=== PATIENT | female | born 1990 | race Caucasian/White ===

== ENCOUNTER 2016-12-14 16:06 | Emergency (ER) ==
[2016-12-14 16:26] VITALS: BP 130/81; TEMP 98.3; BMI 35.6
== END 2016-12-14 17:45 | disposition left against medical advice (07) ==
LOC: ED 16:06
DX: R42 Dizziness and giddiness (principal)

== ENCOUNTER 2017-03-18 17:11 | Emergency (ER) ==
[2017-03-18 17:29] VITALS: BP 134/97; TEMP 99.2; BMI 32.1
[2017-03-18 17:48] LABS: URINE PREGNANCY INTERNAL QC INTERNAL QC VALID
--- NOTE | 2017-03-18 18:23 | DI ---
EXAM: RIGHT ANKLE THREE VIEWS HISTORY: Injury, pain . FINDINGS: Bone and joint structures appear normal. No fracture or joint dislocation. There is no joint effusion. Bone density is unremarkable. IMPRESSION: Bone and joint structures are within normal limits.
--- NOTE | 2017-03-18 18:23 | DI ---
EXAM: RIGHT FOOT, 3 VIEWS HISTORY: Injury, pain FINDINGS: Bone and joint structures appear normal. No displaced fracture or joint dislocation is seen. There is no joint effusion. Soft tissues within normal limits. IMPRESSION: Within normal limits.
--- NOTE | 2017-03-18 18:31 | ED.PDOC ---
General ED Provider: Dr. EARLENE MORTON Chief Complaint: Ankle Pain/Injury Stated Complaint: right ankle foot pain Time Seen by Physician: 17:17 (seen with nurses at bedside ) Mode of Arrival: Walk-In Information Source: Patient Exam Limitations: No limitations Primary Care Provider: [facility] Nursing and Triage Documentation Reviewed and Agree: Yes Musculoskeletal Complaint Exam - Ankle/Foot Complaint/Exam Location of Injury: Reports: Right, Ankle, Foot Mechanism of Injury: Reports: Trauma (rolled ankle) Onset/Duration: 1 hr Symptoms Are: Reports: Still present Onset of Pain: Reports: Immediate Initial Severity: Moderate Current Severity: Mild Location: Reports: Discrete Character: Reports: Aching Alleviating: Reports: Rest, Position Aggravating: Reports: Movement Able to Bear Weight: Yes Associated Signs and Symptoms: Denies: Swelling, Redness, Bruising, Fever, Weakness, Numbness, Tingling Gout Risk Factors: Reports: None Related Surgical History: Reports: None Achilles Tendon Abnormality: No Differential Diagnosis: Closed Fracture Review of Systems - Review Of Systems Constitutional: Reports: No symptoms Eyes: Reports: No symptoms Ears, Nose, Mouth, Throat: Reports: No symptoms Respiratory: Reports: No symptoms Cardiac: Reports: No symptoms GI: Reports: No symptoms : Reports: No symptoms Musculoskeletal: Reports: Joint pain Skin: Reports: No symptoms Neurological: Reports: No symptoms Endocrine: Reports: No symptoms Hematologic/Lymphatic: Reports: No symptoms All Other Systems: Reviewed and Negative Past Medical History - Past Medical History Endocrine: Reports: None Cardiovascular: Reports: None Respiratory: Reports: None Hematological: Reports: None Gastrointestinal: Reports: None Genitourinary: Reports: None Neuro/Psych: Reports: Anxiety, Depression Musculoskeletal: Reports: None Cancer: Reports: None Last Menstrual Period: -02/27/17 Other Pertinent Past Medical History: PLASTIC SURGERY- RECONSTRUCTION ON FACE, LEFT EYE SURGERY - Surgical History General Surgical History: Reports: Other (PLASTIC SURGERY- RECONSTRUCTION ON FACE, LEFT EYE SURGERY) - Family History Family History: Reports: Unknown - Social History Smoking Status: Current some day smoker, Light tobacco smoker Hx Substance Use: No Alcohol Screening: Occasionally - Immunizations Tetanus Shot up to Date: No (10 years ago) Physical Exam - Physical Exam Appearance: Well-appearing, No pain distress, Well-nourished Eyes: GIRISH, EOMI, Conjunctiva clear ENT: Ears normal, Nose normal, Oropharynx normal Respiratory: Airway patent, Breath sounds clear, Breath sounds equal, Respirations nonlabored Cardiovascular: RRR, Pulses normal, No rub, No murmur GI/: Soft, Nontender, No masses, Bowel sounds normal, No Organomegaly Musculoskeletal: Normal strength, ROM intact, No edema, No calf tenderness Skin: Warm, Dry, Normal color Neurological: Sensation intact, Motor intact, Reflexes intact, Cranial nerves intact, Alert, Oriented Psychiatric: Affect appropriate, Mood appropriate Interpretation - Radiology Interpretation Radiology Interpretation By: Radiologist Radiology Results: No acute changes Critical Care Note - Critical Care Note Total Time (mins): 0 Course - Course Orders, Labs, Meds: Lab Review 03/18/17 17:33 Urine Test Negative Orders Category Date Time Status URINE DRUG SCREEN (RAPID FOR ED) [DRUG SCREEN, URINE, LAB 03/18/17 17:33 Received RAPID] Stat URINE Stat LAB 03/18/17 17:33 Completed ANKLE, RIGHT MIN 3 VIEWS Stat RADS 03/18/17 17:31 Completed FOOT, RIGHT 3 VIEWS Stat RADS 03/18/17 17:32 Completed Vital Signs: Temp Pulse Resp BP Pulse Ox 03/18/17 17:11 99.2 F 105 H 20 134/97 H 97 Departure - Departure Time of Disposition: 18:31 Disposition: HOME SELF-CARE Discharge Problem: Ankle pain Instructions: Arthralgia (ED), Sprain (ED) Condition: Good Pt referred to PMD for follow-up: No Additional Instructions: Please call your Family Physician as soon as possible to schedule a follow-up appointment. Allergies/Adverse Reactions: Allergies amoxicillin [Amoxicillin] Adverse Reaction (Verified 03/18/17 17:31) Penicillins Adverse Reaction (Verified 03/18/17 17:31) Home Medications: Ambulatory Orders 1 [No Reported Medications] 03/18/17 Disposition Discussed With: Patient, Family
[2017-03-18 18:38] LABS: COCAIN SCREEN,URINE NEGATIVE (NEGATIVE)
== END 2017-03-18 18:47 | disposition home or self-care (01) ==
LOC: ED 17:11
DX: M25.571 Pain in right ankle and joints of right foot (principal); X50.1XXA Overexertion from prolonged static or awkward postures, initial encounter
CPT/HCPCS: 80306; 81025; 99283

== ENCOUNTER 2017-11-04 10:22 | Emergency (ER) | payer OTHER ==
[2017-11-04 10:27] VITALS: BP 135/79; TEMP 98.9; BMI 41.5
--- NOTE | 2017-11-04 11:22 | ED.PDOC ---
General ED Provider: Dr. ALABNIA MCKINNON Chief Complaint: Respiratory Complaint Stated Complaint: Generalized aching, fever, chills sore throat and Rt Ear Ache. Has been exposed to flu. Denies nausea or vomiting. Time Seen by Physician: 11:10 Mode of Arrival: Walk-In Information Source: Patient Primary Care Provider[facility] Nursing and Triage Documentation Reviewed and Agree: Yes Reviewed sepsis parameters & appropriate labs ordered?: Yes System Inflammatory Response Syndrome: Not Applicable Sepsis Protocol: For patient's 13 years and over: Temp is 96.8 and below OR 101 and greater Pulse >90 BPM Resp >20/minute Acutely Altered Mental Status Are patient's symptoms suggestive of a new infection, such as: -Pneumonia -Skin, Soft Tissue -Endocarditis -UTI -Bone, Joint Infection -Implantable Device -Acute Abdominal Infection -Wound Infection -Meningitis -Blood Stream Catheter Infection -Unknown System Inflammatory Response Syndrome: Not Applicable Respiratory Complaint Exam - Respiratory Complaint/Exam Symptoms Are: Still present Timing: Constant Initial Severity: Moderate Current Severity: Mild Location: Throat, Chest Character: Reports: Non-productive cough, Dry cough Aggravating: Reports: None Alleviating: Reports: None Associated Signs and Symptoms: Reports: Nasal congestion, Sore throat (Ear ache- RT) History of Healthcare-Acquired Pneumonia: No Related Surgical History: Reports: None Pulmonary Embolism Risk Factors: None Cardiac Risk Factors: Reports: None Pseudomonas Risk Factors: Reports: None Tuberculosis Risk Factors: Reports: None Status Asthmaticus Risk Factors: Reports: None Home Oxygen Use: No Current Antibiotic Use: No Current Asthma Medication Use: No Respiratory Distress: None Inadequate Respiratory Effort: No Dysphagia Present: No Stridor Present: No JVD Present: No Accessory Muscle Use: No Retractions: Not Present Diminished Breath Sounds: No Sinus Tenderness: None Grunting Respirations: No Kussmaul Respirations: No Differential Diagnoses: Influenza Review of Systems - Review Of Systems Constitutional: Reports: Other Eyes: Reports: No symptoms Ears, Nose, Mouth, Throat: Reports: Ear pain, Throat pain Respiratory: Reports: Cough Cardiac: Reports: No symptoms GI: Reports: No symptoms : Reports: No symptoms Musculoskeletal: Reports: No symptoms Skin: Reports: No symptoms Neurological: Reports: No symptoms Endocrine: Reports: No symptoms Hematologic/Lymphatic: Reports: No symptoms All Other Systems: Reviewed and Negative Past Medical History - Past Medical History Endocrine: Reports: None Cardiovascular: Reports: None Respiratory: Reports: None Hematological: Reports: None Gastrointestinal: Reports: None Genitourinary: Reports: None Neuro/Psych: Reports: Anxiety, Depression Musculoskeletal: Reports: None Cancer: Reports: None Last Menstrual Period: oct 12- Other Pertinent Past Medical History: PLASTIC SURGERY- RECONSTRUCTION ON FACE, LEFT EYE SURGERY - Surgical History General Surgical History: Reports: Other (PLASTIC SURGERY- RECONSTRUCTION ON FACE, LEFT EYE SURGERY) - Family History Family History: Reports: Unknown - Social History Smoking Status: Former smoker Hx Substance Use: No Alcohol Screening: None Physical Exam - Physical Exam Appearance: Obese Ill-appearing: Mild Pain Distress: None Eyes: GIRISH, EOMI, Conjunctiva clear ENT: Ears normal, Nose normal, Erythema (Rt TM which is full and pos erythrema) Respiratory: Airway patent, Breath sounds clear, Breath sounds equal Cardiovascular: RRR, Pulses normal, No rub, No murmur GI/: Soft, Nontender, No masses, Bowel sounds normal Musculoskeletal: Normal strength, ROM intact, No edema Skin: Warm, Dry Neurological: Sensation intact, Motor intact, Cranial nerves intact, Alert, Oriented Psychiatric: Affect appropriate Critical Care Note - Critical Care Note Total Time (mins): 0 Course - Course Orders, Labs, Meds: Lab Review 11/04/17 10:40 Influenza A (Rapid) Negative by naat Influenza B (Rapid) Positive by naat H Orders Category Date Time Status FLU A/B MOLECULAR Stat LAB 11/04/17 10:40 Completed RAPID STREP SCREEN [MOLECULAR GROUP A STREP] Stat LAB 11/04/17 10:40 Completed Vital Signs: Temp Pulse Resp BP Pulse Ox 11/04/17 10:22 98.9 F 94 H 20 135/79 98 Departure - Departure Time of Disposition: 11:25 Disposition: HOME SELF-CARE Discharge Problem: Influenza due to influenza virus, type B, Otitis Instructions: Influenza (ED), Serous Otitis Media (ED) Condition: Good Pt referred to PMD for follow-up: Yes (1 week) IPMP verified?: No Additional Instructions: Take all meds as directed Tylenol or Ibuprofen for temp elevation >101 deg F or pain May take cough and cough meds as needed Out of school through next week. When Wear facial Mask to reduce spread of Respiratory illness and flu/ Avoid public locations until free of symptoms Follow up PCP in next week Allergies/Adverse Reactions: Allergies amoxicillin [Amoxicillin] Adverse Reaction (Verified 11/04/17 10:28) Penicillins Adverse Reaction (Verified 11/04/17 10:28) Home Medications: Ambulatory Orders Azithromycin [Zithromax] 250 mg PO DAILY #6 tablet 11/04/17 Disposition Discussed With: Patient
== END 2017-11-04 11:45 | disposition home or self-care (01) ==
LOC: ED 10:22
DX: J10.1 Influenza due to other identified influenza virus with other respiratory manifestations (principal); H66.91 Otitis media, unspecified, right ear
CPT/HCPCS: 87502; 87651; 99283

== ENCOUNTER 2018-02-27 15:14 | Emergency (ER) ==
[2018-02-27 15:21] VITALS: BP 131/88; TEMP 98.4; BMI 36.7
[2018-02-27] MEDS ORDERED: MORPHINE 2 MG/ML SYRINGE ONE (15:49)
[2018-02-27] MEDS: MORPHINE 2 MG/ML SYRINGE IVP PRN (15:51)
[2018-02-27] MEDS: ZOFRAN 4 MG/2 ML IVP STA (15:51)
--- NOTE | 2018-02-27 17:17 | CT ---
EXAM: CT abdomen pelvis with and without contrast HISTORY: Left upper quadrant abdominal pain COMPARISON: CT abdomen pelvis 11/26/2013 TECHNIQUE: Serial axial images of the abdomen pelvis were performed before and after 75 mL is of Omn ipaque IV contrast was administered. These were obtained from the lung bases through the inferior pe lvis. FINDINGS: The lung bases demonstrate mild atelectasis. The liver is unremarkable with no focal hepatic lesion. The gallbladder is mildly contracted. The a drenal glands are unremarkable. The kidneys are normal. Spleen is unremarkable. Pancreas is unrema rkable. Stomach is normal. Small bowel in the abdomen pelvis is unremarkable. The colon is nondistended. There is no evidence of appendicitis. Uterus is unremarkable. The ovaries are unremarkable. Urinary bladder is distende d. There is minimal free fluid in the pelvis. The osseous structures demonstrate sclerosis in the b ilateral sacroiliac joints. IMPRESSION: 1. No acute intra-abdominal or pelvic process to account for patient's symptoms. 2. Mild nonspecific free fluid noted in the pelvis. 3. 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
--- NOTE | 2018-02-27 17:30 | ED.PDOC ---
General ED Provider: Dr. ALBANIA DENSON-ER Chief Complaint: Abdominal Pain Stated Complaint: cesia been hurting since this am Time Seen by Physician: 15:20 Mode of Arrival: Walk-In Information Source: Patient Exam Limitations: No limitations [facility] Nursing and Triage Documentation Reviewed and Agree: Yes Reviewed sepsis parameters & appropriate labs ordered?: Yes System Inflammatory Response Syndrome: Not Applicable Sepsis Protocol: For patient's 13 years and over: Temp is 96.8 and below OR 101 and greater Pulse >90 BPM Resp >20/minute Acutely Altered Mental Status Are patient's symptoms suggestive of a new infection, such as: -Pneumonia -Skin, Soft Tissue -Endocarditis -UTI -Bone, Joint Infection -Implantable Device -Acute Abdominal Infection -Wound Infection -Meningitis -Blood Stream Catheter Infection -Unknown GI Complaint Exam - Abdominal Pain Complaint/Exam Onset: Sudden Duration: several hours Symptoms Are: Still present Timing: Constant Initial Severity: Mild Current Severity: Moderate Location of Pain: LUQ Character: Reports: Dull, Aching, Cramping Alleviating: Reports: Spontaneous resolution Associated Signs and Symptoms: Denies: Diaphoresis, Fever, Cough, Chest pain, Dizziness, Back pain, Constipation, Blood in stool, Dysuria, Urinary frequency, Decreased urine output, Decreased appetite, Vaginal bleeding, Vaginal discharge , Nausea, Vomiting, Diarrhea, Sore throat, Decreased activity Quality Indicator For Non-Traumatic Chest Pain/Syncope: EKG Performed Review of Systems - Review Of Systems Constitutional: Reports: No symptoms Eyes: Reports: No symptoms Ears, Nose, Mouth, Throat: Reports: No symptoms Respiratory: Reports: No symptoms Cardiac: Reports: No symptoms GI: Reports: Abdominal pain, Nausea : Reports: No symptoms Musculoskeletal: Reports: No symptoms Skin: Reports: No symptoms Neurological: Reports: No symptoms Endocrine: Reports: No symptoms Hematologic/Lymphatic: Reports: No symptoms All Other Systems: Reviewed and Negative Past Medical History - Past Medical History Previously Healthy: Yes Endocrine: Reports: None Cardiovascular: Reports: None Respiratory: Reports: None Hematological: Reports: None Gastrointestinal: Reports: None Genitourinary: Reports: None Neuro/Psych: Reports: Anxiety, Depression Musculoskeletal: Reports: None Cancer: Reports: None Last Menstrual Period: 2 WEEKS Other Pertinent Past Medical History: PLASTIC SURGERY- RECONSTRUCTION ON FACE, LEFT EYE SURGERY - Surgical History General Surgical History: Reports: Other (PLASTIC SURGERY- RECONSTRUCTION ON FACE, LEFT EYE SURGERY) - Family History Family History: Reports: Unknown - Social History Smoking Status: Current some day smoker Hx Substance Use: No Alcohol Screening: Occasionally Lives: With family - Immunizations Tetanus Shot up to Date: No Physical Exam - Physical Exam Appearance: Well-appearing, No pain distress, Well-nourished Pain Distress: Moderate Eyes: GIRISH, EOMI, Conjunctiva clear ENT: Ears normal, Nose normal, Oropharynx normal Neck: Supple Respiratory: Airway patent, Breath sounds clear, Breath sounds equal, Respirations nonlabored Cardiovascular: RRR, Pulses normal, No rub, No murmur GI/: Soft, No masses, Tender Musculoskeletal: Normal strength Skin: Warm, Dry, Normal color Neurological: Sensation intact Psychiatric: Affect appropriate Interpretation - Radiology Interpretation Radiology Interpretation By: Radiologist Radiology Results: Negative Exam Interpreted: CT Scan - EKG Interpretation Time of EKG #1: 17:30 Re-Evaluation - Re-Evaluation Time of Re-Evaluation: 17:30 Status: Improved Vital Signs Stable: Yes Pain Level: 0 Appearance: NAD Lungs: Clear Skin: Warm and Dry Neuro: Alert and Oriented X3 CV: RRR Critical Care Note - Critical Care Note Total Time (mins): 0 Course - Course Hematology/Chemistry: 02/27/18 15:35 02/27/18 15:35 Orders, Labs, Meds: Lab Review 02/27/18 02/27/18 02/27/18 15:35 15:35 15:35 WBC 9.91 RBC 4.96 Hgb 14.3 Hct 40.9 MCV 82.5 MCH 28.8 MCHC 35.0 RDW Coeff of Frank 13.2 Plt Count 326 Immature Gran % (Auto) 0.3 Neut % (Auto) 55.3 Lymph % (Auto) 32.2 [place] % (Auto) 7.7 Eos % (Auto) 3.7 Baso % (Auto) 0.8 Immature Gran # (Auto) 0.0 Neut # (Auto) 5.5 Lymph # (Auto) 3.2 [place] # (Auto) 0.8 Eos # (Auto) 0.4 Baso # (Auto) 0.1 ESR 6 Sodium 136 Potassium 3.5 Chloride 109 H Carbon Dioxide 17 L Anion Gap 13.5 BUN 6 L Creatinine 0.73 Estimated GFR (MDRD) 97.00 BUN/Creatinine Ratio 8.21 Glucose 104 Calcium 9.6 Total Bilirubin 0.7 AST 17 ALT 18 Alkaline Phosphatase 72 Total Protein 7.4 Albumin 4.0 Globulin 3.4 Albumin/Globulin Ratio 1.18 Amylase 31 Lipase 14 Serum , Qual Negative Urine Color Urine Clarity Urine pH Ur Specific [place] Urine Protein Urine Glucose (UA) Urine Ketones Urine Blood Urine Nitrite Urine Bilirubin Urine Urobilinogen Ur Leukocyte Esterase Urine Microscopic RBC Urine Microscopic WBC Ur Squamous Epith Cells 02/27/18 15:35 WBC RBC Hgb Hct MCV MCH MCHC RDW Coeff of Frank Plt Count Immature Gran % (Auto) Neut % (Auto) Lymph % (Auto) [place] % (Auto) Eos % (Auto) Baso % (Auto) Immature Gran # (Auto) Neut # (Auto) Lymph # (Auto) [place] # (Auto) Eos # (Auto) Baso # (Auto) ESR Sodium Potassium Chloride Carbon Dioxide Anion Gap BUN Creatinine Estimated GFR (MDRD) BUN/Creatinine Ratio Glucose Calcium Total Bilirubin AST ALT Alkaline Phosphatase Total Protein Albumin Globulin Albumin/Globulin Ratio Amylase Lipase Serum , Qual Urine Color Yellow Urine Clarity Cloudy Urine pH 6.0 Ur Specific [place] 1.015 Urine Protein Negative Urine Glucose (UA) Negative Urine Ketones Negative Urine Blood Trace-intact Urine Nitrite Negative Urine Bilirubin Negative Urine Urobilinogen 0.2 Ur Leukocyte Esterase 2+ Urine Microscopic RBC 2-5 Urine Microscopic WBC 5-10 Ur Squamous Epith Cells 50-100 Orders Category Date Time Status NPO REMINDER: IMAGING ONCE CARE 02/27/18 15:37 Active ED IV/MEDIPORT/POWERPORT .ONCE EMERGENCY 02/27/18 15:36 Active AMYLASE Stat LAB 02/27/18 15:35 Completed CBC W/ AUTO DIFF Stat LAB 02/27/18 15:35 Completed COMPREHENSIVE METABOLIC PANEL Stat LAB 02/27/18 15:35 Completed ESR Stat LAB 02/27/18 15:35 Completed LIPASE Stat LAB 02/27/18 15:35 Completed SERUM Stat LAB 02/27/18 15:35 Completed URINALYSIS C & S IF INDICATED Stat LAB 02/27/18 15:35 Completed URINE CULTURE Routine LAB 02/27/18 15:35 Received 0.9 % Sodium Chloride [Saline Flush] MEDS 02/27/18 15:36 Ordered 1 syr IVF PRN PRN Morphine Sulfate [Morphine 2 mg/ml Syringe] MEDS 02/27/18 15:36 Ordered 2 mg IVP Q4H PRN Ondansetron HCl/Pf [Zofran 4 mg/2 ml] MEDS 02/27/18 15:36 Discontinued 4 mg IVP ONCE STA CT ABDOMEN/PELVIS W/WO CONTRAS Stat RADS 02/27/18 15:37 Completed Medications Generic Name Dose Route Start Last Admin Trade Name Freq PRN Reason Stop Dose Admin Morphine Sulfate 2 mg 02/27/18 15:36 02/27/18 15:51 Morphine 2 Mg/Ml Syringe IVP 2 mg Q4H PRN Administration Abdominal Pain Sodium Chloride 1 syr 02/27/18 15:36 Saline Flush IVF PRN PRN To flush IV Discontinued Medications Generic Name Dose Route Start Last Admin Trade Name Freq PRN Reason Stop Dose Admin Ondansetron HCl 4 mg 02/27/18 15:36 02/27/18 15:51 Zofran 4 Mg/2 Ml IVP 02/27/18 15:37 4 mg ONCE STA Administration Vital Signs: Temp Pulse Resp BP Pulse Ox 02/27/18 15:14 98.4 F 96 H 22 131/88 97 Departure - Departure Time of Disposition: 17:30 Disposition: HOME SELF-CARE Discharge Problem: Abdominal pain Instructions: Acute Abdominal Pain (ED) Condition: Good Pt referred to PMD for follow-up: No IPMP verified?: Yes Additional Instructions: librax q 6hrs prn #15--zantac 150mg #30--cipro 500mg bid x 7 days---f/u with pcp for more xrays and possibly referral to gi Allergies/Adverse Reactions: Allergies amoxicillin [Amoxicillin] Adverse Reaction (Verified 11/04/17 10:28) NSAIDS (Non-Steroidal Anti-Inflamma Adverse Reaction (Verified 02/27/18 15:23) Penicillins Adverse Reaction (Verified 11/04/17 10:28) Home Medications: Ambulatory Orders 1 [No Reported Medications] 02/27/18 Disposition Discussed With: Patient
== END 2018-02-27 17:38 | disposition home or self-care (01) ==
LOC: ED 15:14
DX: R10.12 Left upper quadrant pain (principal); F17.210 Nicotine dependence, cigarettes, uncomplicated
CPT/HCPCS: 36415; 80053; 81001; 82150; 83690; 84703; 85025; 85651; 87086; 96374; 96375; 99283; 99284

== ENCOUNTER 2018-04-09 23:24 | Emergency (ER) ==
[2018-04-09 23:34] VITALS: BP 146/102; TEMP 98; BMI 32.0
[2018-04-09] MEDS ORDERED: BOOSTRIX IM ONE (23:47)
--- NOTE | 2018-04-09 23:47 | ED.PDOC ---
General ED Provider: Dr. 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 states she did not see any blood on the finger that was stuck . She cleaned it out well and used rubbing Alcohol. Time Seen by Physician: 23:35 Mode of Arrival: Walk-In Information Source: Patient Exam Limitations: No limitations Primary Care Provider: [facility] Nursing and Triage Documentation Reviewed and Agree: Yes Does patient meet sepsis criteria?: No If yes, has appropriate treatment been initiated?: No System Inflammatory Response Syndrome: Not Applicable Sepsis Protocol: For patient's 13 years and over: Temp is 96.8 and below OR 101 and greater Pulse >90 BPM Resp >20/minute Acutely Altered Mental Status Are patient's symptoms suggestive of a new infection, such as: -Pneumonia -Skin, Soft Tissue -Endocarditis -UTI -Bone, Joint Infection -Implantable Device -Acute Abdominal Infection -Wound Infection -Meningitis -Blood Stream Catheter Infection -Unknown Environmental Complaint Exam - Environmental Exposure Complaint/Exam Patient Complains of: Denies: Cold exposure (Dirty needle ), Heat Exposure Exposure Began: just prior to arrival Location: Present: Other (left index finger ) Aggravating Cold: Reports: None Aggravating Heat: Reports: None Associated Signs and Symptoms: Denies: Nausea, Vomiting, Numbness, Thirst, Diaphoresis, Weakness, Pallor, Shivering, Altered mental status, Leg cramps, Abdominal cramps Differential Diagnoses: Other (occupational needle stick ) Review of Systems - Review Of Systems Constitutional: Reports: No symptoms Eyes: Reports: No symptoms Ears, Nose, Mouth, Throat: Reports: No symptoms Respiratory: Reports: No symptoms Cardiac: Reports: No symptoms GI: Reports: No symptoms : Reports: No symptoms Musculoskeletal: Reports: No symptoms Skin: Reports: No symptoms Neurological: Reports: Anxiety Endocrine: Reports: No symptoms Hematologic/Lymphatic: Reports: No symptoms All Other Systems: Reviewed and Negative Past Medical History - Past Medical History Previously Healthy: Yes Endocrine: Reports: None Cardiovascular: Reports: None Respiratory: Reports: None Hematological: Reports: None Gastrointestinal: Reports: None Genitourinary: Reports: None Neuro/Psych: Reports: Anxiety, Depression Musculoskeletal: Reports: None Cancer: Reports: None Last Menstrual Period: 2 weeks Other Pertinent Past Medical History: PLASTIC SURGERY- RECONSTRUCTION ON FACE, LEFT EYE SURGERY - Surgical History General Surgical History: Reports: Other (PLASTIC SURGERY- RECONSTRUCTION ON FACE, LEFT EYE SURGERY) - Family History Family History: Reports: Unknown - Social History Smoking Status: Former smoker Hx Substance Use: No Alcohol Screening: Occasionally - Immunizations Tetanus Shot up to Date: No Physical Exam - Physical Exam Appearance: Well-appearing, No pain distress, Well-nourished Eyes: GIRISH, EOMI, Conjunctiva clear ENT: Ears normal, Nose normal, Oropharynx normal Respiratory: Airway patent, Breath sounds clear, Breath sounds equal, Respirations nonlabored Cardiovascular: RRR, Pulses normal, No rub, No murmur GI/: Soft, Nontender, No masses, Bowel sounds normal, No Organomegaly Musculoskeletal: Normal strength, ROM intact, No edema, No calf tenderness Skin: Warm, Dry, Normal color Neurological: Sensation intact, Motor intact, Reflexes intact, Cranial nerves intact, Alert, Oriented Psychiatric: Affect appropriate, Anxious Critical Care Note - Critical Care Note Total Time (mins): 0 Comments: Discussed risks and benefits of post exposure prophylaxis patient opted no to take medication due to her not seeing any blood during the needle stick. Course - Course Hematology/Chemistry: 04/09/18 23:50 04/09/18 23:50 Orders, Labs, Meds: Lab Review 04/09/18 04/09/18 23:50 23:50 WBC 12.46 H RBC 4.90 Hgb 13.9 Hct 41.1 MCV 83.9 MCH 28.4 MCHC 33.8 RDW Coeff of Frank 13.0 Plt Count 315 Immature Gran % (Auto) 0.2 Neut % (Auto) 59.8 Lymph % (Auto) 28.9 [place] % (Auto) 6.4 Eos % (Auto) 4.2 Baso % (Auto) 0.5 Immature Gran # (Auto) 0.0 Neut # (Auto) 7.5 H Lymph # (Auto) 3.6 H [place] # (Auto) 0.8 Eos # (Auto) 0.5 Baso # (Auto) 0.1 Sodium 139 Potassium 3.5 Chloride 108 H Carbon Dioxide 20 L Anion Gap 14.5 BUN 9 Creatinine 0.74 Estimated GFR (MDRD) 96.00 BUN/Creatinine Ratio 12.16 Glucose 99 Calcium 9.3 Total Bilirubin 0.6 AST 15 ALT 11 L Alkaline Phosphatase 73 Total Protein 8.0 Albumin 3.9 Globulin 4.1 Albumin/Globulin Ratio 0.95 Orders Category Date Time Status CBC W/ AUTO DIFF Stat LAB 04/09/18 23:50 Completed COMPREHENSIVE METABOLIC PANEL Stat LAB 04/09/18 23:50 Completed HEPATITIS PANEL, ACUTE Stat LAB 04/09/18 23:50 Received HIV 4TH GENERATION Stat LAB 04/09/18 23:50 Received Diphth,Pertuss(Acell),Tet Vac [Boostrix] MEDS 04/09/18 23:47 Discontinued 0.5 ml IM .ONCE ONE Medications Discontinued Medications Generic Name Dose Route Start Last Admin Trade Name Freq PRN Reason Stop Dose Admin Diphtheria/Pertussis/Tetanus Vacc 0.5 ml 04/09/18 23:47 04/09/18 23:56 Boostrix IM 04/09/18 23:48 0.5 ml .ONCE ONE Administration Vital Signs: Temp Pulse Resp BP Pulse Ox 04/09/18 23:24 98 F 80 15 146/102 H 99 Departure - Departure Time of Disposition: 23:52 Disposition: HOME SELF-CARE Discharge Problem: Needle stick injury Instructions: Needle Stick Injuries (ED) Condition: Stable Pt referred to PMD for follow-up: Yes IPMP verified?: No Additional Instructions: Follow up with your PCP in in 2-3 days. Allergies/Adverse Reactions: Allergies amoxicillin [Amoxicillin] Adverse Reaction (Verified 11/04/17 10:28) NSAIDS (Non-Steroidal Anti-Inflamma Adverse Reaction (Verified 02/27/18 15:23) Penicillins Adverse Reaction (Verified 11/04/17 10:28) Home Medications: Ambulatory Orders 1 [No Reported Medications] 02/27/18 Disposition Discussed With: Patient
== END 2018-04-10 00:09 | disposition home or self-care (01) ==
LOC: ED 23:24
DX: S61.231A Puncture wound without foreign body of left index finger without damage to nail, initial encounter (principal); W46.1XXA Contact with contaminated hypodermic needle, initial encounter; Y99.0 Civilian activity done for income or pay
CPT/HCPCS: 36415; 80053; 80074; 85025; 87389; 90471; 90715; 96372; 99282

== ENCOUNTER 2018-04-17 01:53 | Emergency (ER) ==
[2018-04-17 02:06] VITALS: BP 129/84; TEMP 97.9; BMI 36.3
[2018-04-17] MEDS ORDERED: PHENERGAN 25 MG/ML VIAL IM STA (02:08)
[2018-04-17] MEDS ORDERED: DEMEROL 100 MG/ML SYRINGE IM STA (02:09)
--- NOTE | 2018-04-17 02:16 | ED.PDOC ---
General ED Provider: Dr. SINDHU DOOLEY Chief Complaint: Abdominal Pain Stated Complaint: Patient states she has a bad gall bladder and has been trying have it taken out but the surgeons would not. She states that she started having sudden onset of pain tonight on the right upper quadrant radiating to the back. Had a turkey sandwich. States that she had some vomiting prior to arrival. Denies any urinary symtoms or vaginal bleeding. Time Seen by Physician: 02:12 Mode of Arrival: Walk-In Information Source: Patient Exam Limitations: No limitations Primary Care Provider: [facility] Nursing and Triage Documentation Reviewed and Agree: Yes Does patient meet sepsis criteria?: No System Inflammatory Response Syndrome: Not Applicable Sepsis Protocol: For patient's 13 years and over: Temp is 96.8 and below OR 101 and greater Pulse >90 BPM Resp >20/minute Acutely Altered Mental Status Are patient's symptoms suggestive of a new infection, such as: -Pneumonia -Skin, Soft Tissue -Endocarditis -UTI -Bone, Joint Infection -Implantable Device -Acute Abdominal Infection -Wound Infection -Meningitis -Blood Stream Catheter Infection -Unknown GI Complaint Exam - Abdominal Pain Complaint/Exam Onset: Sudden Duration: 2 hours Symptoms Are: Still present Timing: Constant Initial Severity: Moderate Current Severity: Severe Location of Pain: RUQ Radiates To: Reports: Back Character: Reports: Dull, Aching Aggravating: Reports: Movement, Food Alleviating: Reports: None Associated Signs and Symptoms: Reports: Back pain, Nausea, Vomiting. Denies: Diaphoresis, Fever, Cough, Chest pain, Dizziness, Constipation, Blood in stool, Dysuria, Urinary frequency, Decreased urine output, Decreased appetite, Vaginal bleeding, Vaginal discharge, Diarrhea, Sore throat, Decreased activity AAA Risk Factors: Reports: None Cardiac Risk Factors: Reports: None Ectopic Risk Factors: Reports: None Ovarian Torsion Risk Factors: Reports: None Surgical Obstruction Risk Factors: Reports: None Related Surgical History: Reports: None Patient Rh Status: Unknown Abdominal Findings: Present: Other (Tenderness on the right upper quadrant without rebound ) Differential Diagnoses: Gastroenteritis, Renal Colic, GB, UTI Review of Systems - Review Of Systems Constitutional: Reports: No symptoms Eyes: Reports: No symptoms Ears, Nose, Mouth, Throat: Reports: No symptoms Respiratory: Reports: No symptoms Cardiac: Reports: No symptoms GI: Reports: Abdominal pain, Nausea, Vomiting : Reports: No symptoms Musculoskeletal: Reports: No symptoms Skin: Reports: No symptoms Neurological: Reports: No symptoms Endocrine: Reports: No symptoms Hematologic/Lymphatic: Reports: No symptoms All Other Systems: Reviewed and Negative Past Medical History - Past Medical History Previously Healthy: Yes Endocrine: Reports: None Cardiovascular: Reports: None Respiratory: Reports: None Hematological: Reports: None Gastrointestinal: Reports: Other (Billary Sludge) Genitourinary: Reports: None Neuro/Psych: Reports: Anxiety, Depression Musculoskeletal: Reports: None Cancer: Reports: None Last Menstrual Period: PRESENTLY Other Pertinent Past Medical History: PLASTIC SURGERY- RECONSTRUCTION ON FACE, LEFT EYE SURGERY - Surgical History General Surgical History: Reports: Other (PLASTIC SURGERY- RECONSTRUCTION ON FACE, LEFT EYE SURGERY) - Family History Family History: Reports: Unknown - Social History Smoking Status: Current every day smoker, Light tobacco smoker Hx Substance Use: Yes (IN THE PAST) Alcohol Screening: Occasionally - Immunizations Tetanus Shot up to Date: Yes Physical Exam - Physical Exam Appearance: Ill-appearing Ill-appearing: Moderate Pain Distress: Severe Neck: Supple Respiratory: Airway patent, Breath sounds clear, Breath sounds equal, Respirations nonlabored Cardiovascular: RRR, Pulses normal, No rub, No murmur GI/: Soft, Bowel sounds normal, No Organomegaly, Tender Musculoskeletal: Normal strength, ROM intact, No edema, No calf tenderness Skin: Warm, Dry, Normal color Neurological: Sensation intact, Motor intact, Reflexes intact, Cranial nerves intact, Alert, Oriented Psychiatric: Anxious Critical Care Note - Critical Care Note Total Time (mins): 0 Course - Course Hematology/Chemistry: 04/17/18 02:20 04/17/18 02:20 Orders, Labs, Meds: Lab Review 04/17/18 04/17/18 02:20 02:20 WBC 15.60 H RBC 4.66 Hgb 13.3 Hct 39.1 MCV 83.9 MCH 28.5 MCHC 34.0 RDW Coeff of Frank 13.0 Plt Count 322 Immature Gran % (Auto) 0.3 Neut % (Auto) 73.1 Lymph % (Auto) 17.7 [place] % (Auto) 6.4 Eos % (Auto) 2.0 Baso % (Auto) 0.5 Immature Gran # (Auto) 0.0 Neut # (Auto) 11.4 H Lymph # (Auto) 2.8 [place] # (Auto) 1.0 Eos # (Auto) 0.3 Baso # (Auto) 0.1 Sodium 141 Potassium 3.6 Chloride 108 H Carbon Dioxide 21 Anion Gap 15.6 BUN 11 Creatinine 0.80 Estimated GFR (MDRD) 87.00 BUN/Creatinine Ratio 13.75 Glucose 113 H Calcium 9.4 Total Bilirubin 0.6 AST 189 H ALT 95 H Alkaline Phosphatase 97 Total Protein 7.2 Albumin 3.5 Globulin 3.7 Albumin/Globulin Ratio 0.95 Amylase 35 Lipase 43 Orders Category Date Time Status AMYLASE Stat LAB 04/17/18 02:20 Completed CBC W/ AUTO DIFF Stat LAB 04/17/18 02:20 Completed COMPREHENSIVE METABOLIC PANEL Stat LAB 04/17/18 02:20 Completed LIPASE Stat LAB 04/17/18 02:20 Completed Meperidine HCl/Pf [Demerol 100 mg/ml Syringe] MEDS 04/17/18 02:09 Discontinued 75 mg IM ONCE STA Promethazine HCl [Phenergan 25 mg/ml Vial] MEDS 04/17/18 02:08 Discontinued 25 mg IM ONCE STA Medications Discontinued Medications Generic Name Dose Route Start Last Admin Trade Name Freq PRN Reason Stop Dose Admin Meperidine HCl 75 mg 04/17/18 02:09 04/17/18 02:37 Demerol 100 Mg/Ml Syringe IM 04/17/18 02:10 75 mg ONCE STA Administration Promethazine HCl 25 mg 04/17/18 02:08 04/17/18 02:32 Phenergan 25 Mg/Ml Vial IM 04/17/18 02:09 25 mg ONCE STA Administration Vital Signs: Temp Pulse Resp BP Pulse Ox 04/17/18 01:53 97.9 F 79 36 H 129/84 98 Departure - Departure Time of Disposition: 02:41 Disposition: HOME SELF-CARE Discharge Problem: Gallbladder attack, Elevated liver enzymes Instructions: Cholecystitis (ED) Condition: Stable Pt referred to PMD for follow-up: Yes IPMP verified?: No Additional Instructions: Take medications as prescribed Follow up with PCP in 3 days Prescriptions: Hydrocodone/Acetaminophen [[place] 5-325 Tablet] 1 tab PO Q6HR PRN #20 tablet PRN Reason: PAIN Ondansetron HCl [Zofran Tab] 4 mg PO Q8H PRN #14 tablet PRN Reason: Nausea / Vomiting Allergies/Adverse Reactions: Allergies amoxicillin [Amoxicillin] Adverse Reaction (Verified 04/17/18 02:04) NSAIDS (Non-Steroidal Anti-Inflamma Adverse Reaction (Verified 04/17/18 02:04) Penicillins Adverse Reaction (Verified 04/17/18 02:04) Home Medications: Ambulatory Orders Hydrocodone/Acetaminophen [[place] 5-325 Tablet] 1 tab PO Q6HR PRN #20 tablet Ondansetron HCl [Zofran Tab] 4 mg PO Q8H PRN #14 tablet 04/17/18 Disposition Discussed With: Patient, Family
== END 2018-04-17 03:28 | disposition home or self-care (01) ==
LOC: ED 01:53
DX: K82.9 Disease of gallbladder, unspecified (principal); R74.8 Abnormal levels of other serum enzymes; F17.210 Nicotine dependence, cigarettes, uncomplicated
CPT/HCPCS: 36415; 80053; 82150; 83690; 85025; 96372; 99283